=== PATIENT | male | born 1985 | race Caucasian/White ===

== ENCOUNTER → 2021-11-16 09:20 | Outpatient (CLI) | payer OTHER, SELFPAY ==
[2021-11-16 19:36] LABS: Add Manual Diff / Slide Review NO; Basophils Absolute Auto 100 /uL (0-100); Basophils Percent Auto 1.3 % (0-2); Eosinophils Absolute Auto 0 /uL (0-450); Eosinophils Percent Auto 0.9 % (2-4); Hematocrit 44.6 % (41-53); Hemoglobin 15.6 g/dL (13.5-17.5); Lymphocytes Absolute Auto 1400 /uL (1100-4500); Lymphocytes Percent Auto 31.4 % (25-40); Mean Corpuscular Hemoglobin 33.7 PG (26-34); Mean Corpuscular Volume 96.2 fL (80-100); Monocytes Absolute Auto 400 /uL (0-900); Monocytes Percent Auto 9.3 % (3-14); Neutrophils Absolute Auto 2600 /uL (1500-7000); Neutrophils Percent Auto 57.1 % (50-75); Platelet Count 257 X10^3/uL (150-400); Red Blood Cell Count 4.64 X10^6/uL (4.5-5.9); White Blood Cell Count 4.6 X10^3/uL (4.5-11.0)
[2021-11-16 21:14] LABS: Follicle Stimulating Hormone < 0.66 mIU/mL; Luteinizing Hormone 1.56 mIU/mL
[2021-11-16 23:13] LABS: TSH w/ Reflex to FT4 2.15 uIU/mL (0.47-4.68)
[2021-11-17 04:19] LABS: HEMOLYSIS < 15 (0-50)
[2021-11-17 04:29] LABS: Alanine Aminotransferase 33 IU/L (<50); Albumin 4.1 g/dL (3.5-5.0); Albumin Globulin Ratio 1.6 (1.0-2.8); Alkaline Phosphatase 96 U/L (38-126); Aspartate Aminotransferase 44 IU/L (17-59); BUN Creatinine Ratio 10.3 (6-22); Bilirubin Total 0.6 mg/dL (0.2-1.3); Blood Urea Nitrogen 9 mg/dL (9-20); Calcium 8.8 mg/dL (8.4-10.2); Carbon Dioxide 26 mmol/L (22-32); Chloride 105 mmol/L (98-107); Cholesterol 187 mg/dL (140-199); Estimated Glomerular Filt Rate > 60 mL/min (>60); Globulin 2.5 g/dL (1.7-4.1); Glucose 88 mg/dL (70-100); HDL Cholesterol 62 mg/dL (40-60); LDL Cholesterol Calculated 104 mg/dL (<100); Potassium 4.2 mmol/L (3.4-5.1); Sodium 138 mmol/L (137-145); Total Protein 6.6 g/dL (6.3-8.2); Triglycerides 107 mg/dL (35-150)
[2021-11-18 15:47] LABS: Prolactin 12.7 ng/mL (3.7-17.9)
[2021-11-26 01:28] LABS: Percent Free Testosterone 3.05 % (1.50-4.20)
== END ==
PROVIDERS: PCP Physician Assistant; Visit Provider Physician Assistant
DX: N52.9 Male erectile dysfunction, unspecified (principal); R79.89 Other specified abnormal findings of blood chemistry; Z13.220 Encounter for screening for lipoid disorders
CPT/HCPCS: 80053; 80061; 83001; 83002; 84146; 84402; 84403; 84443; 85025

== ENCOUNTER → 2022-01-02 09:37 | Outpatient (CLI) | payer OTHER, SELFPAY ==
--- NOTE | 2022-01-02 09:39 | DI.US.S_ITS ---
PROCEDURE: US ABDOMEN LIMITED INDICATIONS: sacral mass (subjective), not testicular TECHNIQUE: Real-time focused scanning was performed of the abdomen, with image documentation. COMPARISON: [facility] ([facility]), CR, XR SACRUM COCCYX MIN 2V, 12/27/2021, 10:09. FINDINGS: At the site of palpable abnormality, there is a superficial complex fluid collection seen just deep to the skin measuring 13 x 14 x 7 mm. There is an apparent connection seen with this scan. Mildly increased peripheral vascularity can be seen. IMPRESSION: Complex fluid collection which is attributed to a skin lesion, which measures up to 14 mm. Please consider an infectious sebaceous cyst versus small abscess. Dictated by: Abundio Shelton M.D. on 01/02/2022 at 10:46 Approved by: Abundio Shelton M.D. on 01/02/2022 at 10:47
== END ==
PROVIDERS: PCP Physician Assistant; Referring Provider Physician Assistant; Visit Provider Physician Assistant
DX: M53.3 Sacrococcygeal disorders, not elsewhere classified (principal); L98.8 Other specified disorders of the skin and subcutaneous tissue
CPT/HCPCS: 76705